=== PATIENT | male | born 1990 | race Caucasian/White ===

== ENCOUNTER 2018-07-31 19:16 | Emergency (ER) | payer MEDICAID ==
[~2018-07-31] VITALS: Ht 172.7 cm; Wt 69.9 kg
[2018-07-31 19:35] VITALS: BP 122/68
[2018-07-31] MEDS ORDERED: QUET25TA5 PO (20:50)
[2018-07-31] MEDS ORDERED: TRUVADA PO (20:50)
[2018-07-31] MEDS ORDERED: DEXAMETHASONE 4 MG TABLET ONE (21:09)
[2018-07-31] MEDS ORDERED: DEXAMETHASONE 4 MG TABLET PO ONE (21:30)
== END 2018-07-31 21:46 | disposition home or self-care (01) ==
LOC: ED 21:40
DX: J00 Acute nasopharyngitis [common cold] (principal); H65.03 Acute serous otitis media, bilateral; Z86.19 Personal history of other infectious and parasitic diseases
CPT/HCPCS: 36415; 71046; 87081; 87806; 87880; 99284; G0475

== ENCOUNTER 2019-03-13 11:04 | Emergency (ER) | payer SELFPAY ==
[~2019-03-13] VITALS: Ht 172.7 cm; Wt 65.7 kg
[~2019-03-13 11:04] MED LIST: QUET25TA5 PO; TRUVADA PO
[2019-03-13 11:26] VITALS: BP 130/78
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
== END 2019-03-13 12:31 ==
LOC: ED 12:27
DX: S01.81XD Laceration without foreign body of other part of head, subsequent encounter (principal); F17.200 Nicotine dependence, unspecified, uncomplicated; X58.XXXD Exposure to other specified factors, subsequent encounter
CPT/HCPCS: 99282